=== PATIENT | male | born 1975 | race Caucasian/White ===

== ENCOUNTER → 2016-08-05 | Outpatient (CLI) | payer OTHER ==
[~2016-08-05] VITALS: Ht 175.3 cm; Wt 92.1 kg
== END ==
LOC: OPSV 11:57
DX: G35 Multiple sclerosis (principal); Z88.0 Allergy status to penicillin; Z88.8 Allergy status to other drugs, medicaments and biological substances
CPT/HCPCS: 96365; J7050

== ENCOUNTER → 2016-09-02 | Outpatient (CLI) | payer OTHER | LOC: OPSV 12:00 | DX: G35 Multiple sclerosis (principal) | CPT/HCPCS: 96365; J2323; J7050 ==

== ENCOUNTER → 2016-10-01 | Outpatient (CLI) | payer OTHER ==
[~2016-10-01] VITALS: Ht 180.3 cm; Wt 91.8 kg
== END ==
LOC: OPSV 12:00
DX: G35 Multiple sclerosis (principal)
CPT/HCPCS: 96365; J2323; J7050

== ENCOUNTER → 2016-11-11 | Outpatient (CLI) | payer OTHER ==
[~2016-11-11] VITALS: Ht 175.3 cm; Wt 92.1 kg
== END ==
LOC: OPSV 12:00
DX: G35 Multiple sclerosis (principal)
CPT/HCPCS: 96365; J2323; J7050